=== PATIENT | female | born 1955 | race Caucasian/White ===

== ENCOUNTER 2018-12-21 13:55 | Emergency (ER) | payer OTHER ==
[2018-12-21 14:28] LABS: BASOPHILS % (AUTO) 0.6 % (0.0-5.0); EOSINOPHILS % (AUTO) 0.6 % (0.0-8.0); HEMATOCRIT 44.7 % (36-48); LYMPHOCYTES % (AUTO) 30.3 % (21.0-51.0); MEAN CORPUSCULAR HEMOGLOBIN 31.4 pg (27.0-33.0); MEAN CORPUSCULAR HGB CONC 34.2 g/dL (32.0-36.0); MONOCYTES % (AUTO) 8.2 % (3.0-13.0); NEUTROPHILS % (AUTO) 60.3 % (40.0-77.0); NUCLEATED RED BLOOD CELLS 0.1 % (0.0-0.19); PLATELET COUNT (AUTO) 181 K/uL (130-400); RED BLOOD CELL COUNT(AUTO) 4.86 MIL/uL (4.00-5.50); RED CELL DISTRIBUTION WIDTH 12.9 % (11.0-15.5); WHITE BLOOD COUNT (AUTO) 5.6 K/uL (4.8-10.8)
[2018-12-21 14:40] LABS: CREATININE 0.6 mg/dL (0.5-1.5); POTASSIUM 3.9 mmol/L (3.5-5.1)
[2018-12-21 14:42] LABS: INR 0.96 (0.85-1.15); PARTIAL THROMBOPLASTIN TIME 25.7 SEC (26.3-35.5); PROTHROMBIN TIME 10.1 SEC (9.6-11.6)
[2018-12-21 14:52] LABS: ALBUMIN 4.4 g/dL (3.5-5.0); BILIRUBIN,TOTAL 1.1 mg/dL (0.2-1.0); MAGNESIUM 1.8 mg/dL (1.80-2.40); THYROID STIMULATING HORMONE 1.18 uIU/mL (0.36-3.74); TOTAL PROTEIN, SERUM 8.2 g/dL (6.0-8.3)
[2018-12-21 14:59] LABS: B-TYPE NATRIURETIC PEPTIDE 44 pg/mL (0-100)
[2018-12-21 15:24] LABS: APPEARANCE,URINE Clear (CLEAR); BILIRUBIN,URINE Negative (NEGATIVE); COLOR,URINE Yellow (YELLOW); GLUCOSE, URINE (UA) Negative (NEGATIVE); KETONES,URINE Negative (NEGATIVE); LEUKOCYTE ESTERASE ,URINE Negative (NEGATIVE); NITRATE,URINE Negative (NEGATIVE); OCCULT BLOOD,URINE Negative (NEGATIVE); PH,URINE 6.5 (5.0-8.0); PROTEIN,URINE Negative (NEGATIVE); UROBILINOGEN,URINE 0.2 mg/dL (0.2-1.0)
[2018-12-21] MEDS ORDERED: MAGNESIUM OXIDE 400 MG TABLET PO ONE (15:56)
[2018-12-21] MEDS ORDERED: SODIUM CHLORIDE 0.9% 1000ML 1,000 ML IV ONE (15:56)
== END 2018-12-21 17:14 | disposition home or self-care (01) ==
LOC: EDH 13:55
DX: I49.9 Cardiac arrhythmia, unspecified (principal); E86.0 Dehydration; R19.7 Diarrhea, unspecified; E83.42 Hypomagnesemia; Z90.49 Acquired absence of other specified parts of digestive tract; Z98.890 Other specified postprocedural states; Z88.2 Allergy status to sulfonamides
CPT/HCPCS: 36415; 71045; 80053; 81003; 82550; 83735; 83880; 84443; 84484; 85025; 85610; 85730; 93005; 96360; 99285; J7030

== ENCOUNTER 2024-01-30 17:59 | Emergency (ER) | payer MEDICARE, OTHER ==
[~2024-01-30] VITALS: Ht 167.6 cm; Wt 75.7 kg
[2024-01-30 18:22] LABS: BASOPHILS # (AUTO) 0.04 K/uL (0.00-0.20); BASOPHILS % (AUTO) 0.6 % (0.0-5.0); EOSINOPHILS # (AUTO) 0.11 K/uL (0.00-0.70); EOSINOPHILS % (AUTO) 1.6 % (0.0-8.0); HEMATOCRIT 42.9 % (36-48); IMMATURE GRANULOCYTE ABSOLUTE 0.01 K/uL (0-1); LYMPHOCYTES # (AUTO) 2.5 K/uL (1.0-4.8); LYMPHOCYTES % (AUTO) 35.7 % (21.0-51.0); MEAN CORPUSCULAR HEMOGLOBIN 31.3 pg (27.0-33.0); MEAN CORPUSCULAR VOLUME 91.9 fL (79-99); MONOCYTES # (AUTO) 0.7 K/uL (0.1-1.0); MONOCYTES % (AUTO) 9.8 % (3.0-13.0); NEUTROPHILS # (AUTO) 3.6 K/uL (1.8-7.7); NEUTROPHILS % (AUTO) 52.2 % (40.0-77.0); PLATELET COUNT (AUTO) 182 K/uL (130-400); RED BLOOD CELL COUNT(AUTO) 4.67 MIL/uL (4.00-5.50); WHITE BLOOD COUNT (AUTO) 6.9 K/uL (4.8-10.8)
[2024-01-30 18:31] LABS: CREATININE 0.9 mg/dL (0.5-1.0)
[2024-01-30 18:36] LABS: ALBUMIN 3.9 g/dL (3.5-5.0); BILIRUBIN,TOTAL 1.1 mg/dL (0.2-1.0); TOTAL PROTEIN, SERUM 7.5 g/dL (6.0-8.3)
--- NOTE | 2024-01-30 18:38 | HMCIMG ---
CHEST 1VW REASON: ABD PAIN COMPARISON: 12/21/2018 FINDINGS: Single view of the chest was obtained. Lungs are clear. Heart size is normal. There is no pulmonary vascular congestion. Mediastinum and bony thorax appear unremarkable. IMPRESSION: 1. Normal single view chest x-ray.
--- NOTE | 2024-01-30 18:45 | ERN ---
ED Note History of Present Illness Stated Complaint: EPIGASTRIC PAIN, ABN EKG Chief Complaint: Abdominal Pain Time Seen by MD: 18:03 Time Seen by Midlevel: 18:03 Dictation: Patient is a 68-year-old female with history of glaucoma, cholecystectomy who p resents to the emergency department with complaints of epigastric pain onset 1530 after eating a burger. Patient reports also having an elevated blood pressure 195/90. Patient reports she went to go see her PCP and told her she had an abnormal EKGs and told her to come to ER to be evaluated. Patient denies any nausea, vomiting, fevers, anymore pain. Patient reports pain lasted about an hour and a half. Allergies: Coded Allergies: Sulfa (Sulfonamide Antibiotics) (Unverified Allergy, Unknown, 01/30/24) Past Medical History Past Medical History: High Cholesterol Additional Past Medical Hx: GLAUCOMA Surgical History: Tonsillectomy, Cholecystectomy History: Not Applicable RN Note Reviewed/Agreed w/PFSH: Yes Review of System Dictation Constitutional: Negative for fever,chills, and weight loss Eyes: Negative for injury, pain,redness, and discharge ENT: Negative for injury,pain or swelling Cardiovascular: Negative for chest pain, palpitations, and edema Respiratory: Negative for shortness of breath, cough, and wheezing, Abdomen/GI: Negative for nausea, vomiting, diarrhea, and constipation positive for abdominal pain Back: Negative for injury and pain : Negative for injury, bleeding and discharge MS/Extremity: Negative for injury and deformity Skin: Negative for rash, and discoloration Neuro: Negative for headache, weakness, numbness, tingling, and seizure Psych: Negative for suicide ideation, homicidal ideation, and hallucinations Initial Vital Sign VS Vital Signs Date Time Temp Pulse Resp B/P (MAP) Pulse Ox O2 Delivery O2 Flow Rate FiO2 01/30/24 18:00 98.6 106 16 155/81 96 Room Air 0 01/30/24 18:52 21 Physical Exam Dictation Vital Signs reviewed General Appearance: Alert, oriented x 3, no acute distress, well developed, nourished. Head and Face: non-traumatic. Eyes: PERRL, pink conjunctivas, eyelid no trauma, anterior chamber with arcus senilis. Ears: Pinnas intact and no signs of trauma or erythema ear canals clear and no discharge TM no erythema Nose: No discharge, no bleeding. Oropharynx: Mouth normal, tongue pink. pharynx clear,no erythema, tonsils no exudates, no abscesses noted, mucous membrane moist Neck: Supple, non-tender, no thyromegaly, no masses, no JVD, no bruits Breast:Deferred Chest:No tenderness, no crepitus, no paradoxical movement, no retractions Lungs:Clear, well-ventilated, symmetric, no rales, no wheezing, no rhonchi, no stridor, good breath sounds bilaterally Heart: Regular rate, regular rhythm, no murmur, no gallops Vascular: no peripheral edema, Abdomen: Soft, positive bowel sounds, nondistended, no guarding, nontender, no rebound, no masses no hepatomegaly, no splenomegaly, no Chamberlain's sign, no hernias. Rectal: Deferred Genital: Deferred Neurological: Normal speech, motor function intact, sensory function intact Musculoskeletal: Neck nontender, full range of motion, back nontender, full range of motion, Extremities: nontender, full range of motion Skin: Color pink, dry, no turgor, no rash, no lacerations, no abrasions, no contusions. Lymphatic: Deferred Results (Laboratory/Radiology) Laboratory/Radiology Laboratory Tests Test 01/30/24 18:12 01/30/24 19:09 01/30/24 19:32 White Blood Count 6.9 K/uL (4.8-10.8) Red Blood Count 4.67 MIL/uL (4.00-5.50) Hemoglobin 14.6 g/dL (12.0-16.0) Hematocrit 42.9 % (36-48) Mean Corpuscular Volume 91.9 fL (79-99) Mean Corpuscular Hemoglobin 31.3 pg (27.0-33.0) Mean Corpuscular Hemoglobin Concent 34.0 g/dL (32.0-36.0) Red Cell Distribution Width 12.0 % (11.0-15.5) Platelet Count 182 K/uL (130-400) Mean Platelet Volume 11.1 fL (7.5-10.5) H Immature Granulocyte % (Auto) 0.1 % (0-1) Neutrophils (%) (Auto) 52.2 % (40.0-77.0) Lymphocytes (%) (Auto) 35.7 % (21.0-51.0) Monocytes (%) (Auto) 9.8 % (3.0-13.0) Eosinophils (%) (Auto) 1.6 % (0.0-8.0) Basophils (%) (Auto) 0.6 % (0.0-5.0) Neutrophils # (Auto) 3.6 K/uL (1.8-7.7) Lymphocytes # (Auto) 2.5 K/uL (1.0-4.8) Monocytes # (Auto) 0.7 K/uL (0.1-1.0) Eosinophils # (Auto) 0.11 K/uL (0.00-0.70) Basophils # (Auto) 0.04 K/uL (0.00-0.20) Absolute Immature Granulocyte (auto 0.01 K/uL (0-1) Nucleated Red Blood Cells 0.0 % (0.0-0.19) Sodium Level 143 mmol/L (136-145) Potassium Level 4.0 mmol/L (3.5-5.1) Chloride Level 106 mmol/L (101-111) Carbon Dioxide Level 32 mmol/L (21-32) Blood Urea Nitrogen 21 mg/dL (7-18) H Creatinine 0.9 mg/dL (0.5-1.0) Glomerular Filtration Rate Calc 69 mL/min (>90) Random Glucose 141 mg/dL (70-105) H Total Calcium 9.6 mg/dL (8.5-10.1) Total Bilirubin 1.1 mg/dL (0.2-1.0) H Aspartate Amino Transf (AST/SGOT) 12 U/L (10-37) Alanine Aminotransferase (ALT/SGPT) 24 U/L (12-78) Alkaline Phosphatase 82 U/L (50-136) Troponin I High Sensitivity 14 ng/L (4-50) 22 ng/L (4-50) Total Protein 7.5 g/dL (6.0-8.3) Albumin 3.9 g/dL (3.5-5.0) Lipase 36 U/L (16-77) Urine Color LIGHT-YELLOW (YELLOW) Urine Appearance CLEAR (CLEAR) Urine pH 5.5 (5.0-8.0) Urine Specific [place] 1.013 (1.001-1.031) Urine Protein NEGATIVE mg/dL (NEGATIVE) Urine Glucose (UA) NEGATIVE mg/dL (NEGATIVE) Urine Ketones NEGATIVE mg/dL (NEGATIVE) Urine Occult Blood NEGATIVE (NEGATIVE) Urine Nitrate NEGATIVE (NEGATIVE) Urine Bilirubin NEGATIVE mg/dL (NEGATIVE) Urine Urobilinogen 0.2 mg/dL (0.2-1.0) Urine Leukocyte Esterase NEGATIVE Abdulkadir/uL Urine RBC 0-1 /HPF (0-1) Urine WBC 0-1 /HPF (0-1) Urine Bacteria None /HPF (None Seen) REASON: ABD PAIN ORDERING PHYSICIAN: EFFIE HATHAWAY MD PROCEDURE: CXR1VW - CHEST 1VW CHEST 1VW REASON: ABD PAIN COMPARISON: 12/21/2018 FINDINGS: Single view of the chest was obtained. Lungs are clear. Heart size is normal. There is no pulmonary vascular congestion. Mediastinum and bony thorax appear unremarkable. IMPRESSION: 1. Normal single view chest x-ray. Labs Reviewed?: Yes EKG: (+) rhythm (Sinus rhythm), (+) ND (148) EKG Comment: EKG 01/30/2024 1809 ventricular rate 100, sinus tachycardia, regular rate and rhythm, no STEMI. ED Course ED Course Orders Procedure Category Date Status Time Cbc With Differential LAB 01/30/24 Complete 18:04 Comprehensive LAB 01/30/24 Complete Metabolic Panel 18:04 Troponin I High LAB 01/30/24 Complete Sensitivity 18:04 Urinalysis Profile LAB 01/30/24 Complete 18:04 12 Lead Ekg Tracing- EKG 01/30/24 Logged Technical 18:04 Chest 1vw RAD 01/30/24 Resulted 18:04 Lipase LAB 01/30/24 Complete 18:04 0.9%Nacl 1000ml (Ns PHA 01/30/24 Complete 1000ml) 18:30 Pantoprazole 40mg Inj PHA 01/30/24 Complete (Protonix 40mg Inj 18:30 Aspirin 81mg Chew Tab PHA 01/30/24 Complete (Aspirin 81mg Chew 18:30 Troponin I High LAB 01/30/24 Complete Sensitivity 19:00 Current Medications Medications (Trade) Dose Ordered Sig/Lc Route PRN Reason Start Time Stop Time Status Last Admin Dose Admin Aspirin (Aspirin 81mg Chew Tab) 324 mg ONCE ONCE PO 01/30/24 18:30 01/30/24 18:31 DC 01/30/24 18:49 Pantoprazole Sodium (PROTonix 40MG INJ) 40 mg ONCE ONCE IVP 01/30/24 18:30 01/30/24 18:31 DC Sodium Chloride 1,000 ml @ 0 mls/hr ONCE ONCE IV 01/30/24 18:30 01/30/24 18:31 DC Vital Signs Date Time Temp Pulse Resp B/P (MAP) Pulse Ox O2 Delivery O2 Flow Rate FiO2 01/30/24 19:57 98.1 92 18 132/65 99 Room Air* 0 21 01/30/24 18:52 98.6 90 16 149/80 97 Room Air* 0 21 01/30/24 18:00 98.6 106 16 155/81 96 Room Air 0 HEART Score Response (Comments) Value History: Low suspicion (0) 0 EKG: Normal 0 Age: 45-65yrs (+1) 1 Risk Factors: No known risk factors (0) 0 Initial Troponin: Normal limit (0) 0 Total 1 Medical Decision Making MDM The Patient is a 68-year-old female with history of glaucoma, cholecystectomy who presents to the emergency department with complaints of epigastric pain onset 1530 after eating a burger. Patient reports also having an elevated blood pressure 195/90. Patient reports she went to go see her PCP and told her she had an abnormal EKGs and told her to come to ER to be evaluated. Patient denies any nausea, vomiting, fevers, anymore pain. Patient reports pain lasted about an hour and a half. CBC showed no leukocytosis, no anemia, chemistry showed normal lipase, GFR is 69 slight hyperglycemia, negative liver enzymes, troponin of 14, second troponin 22. Chest x-ray unremarkable. Patient continues with no more pain. tachycardia improved. patient in no acute distress. Discussed with the patient the possib ility of admission for observation. At this time patient refuses admission and reports she will follow up with her web editor. Patient instructed to follow up as soon as possible. In to return if anything worsens. Patient agrees with plan. Risks and benefits of being admitted to the hospital discussed with the patient who continues to refused admission. Differential diagnosis: ACS, gastritis, gastroenteritis, tachyarrhythmia, electrolyte imbalance, cholelithiasis Need for hospitalization: Patient does not meet criteria for hospitalization. There are no social concerns with this patient. DX & DISP Disposition: Discharge Departure Impression: Primary Impression: Gastritis Additional Impression: Epigastric pain Condition: Stable Scripts Pantoprazole Sodium (Protonix) 20 Mg Tablet. 1 TAB PO DAILY for 30 Days, #30 TAB 0 Refills Prov: RADHAMES DICKINSON 01/30/24 Additional Instructions: Please follow up with your web editor as soon as possible. Please return to ER if symptoms worsen. FOLLOW-UP WITH PRIMARY CARE PROVIDER IN 1 TO 2 DAYS. TAKE MEDICATIONS DIREC HITESH HERE IN THE EMERGENCY ROOM. OKAY TO CONTINUE HOME MEDICATIONS UNLESS OTHERWISE DISCUSSED DURING YOUR VISIT IN THE EMERGENCY ROOM TODAY. RETURN TO YOUR NEAREST EMERGENCY ROOM IF SYMPTOMS WORSEN OR IF THERE IS NO IMPROVEMENT. CALL 911 IF YOU NEED IMMEDIATE ASSISTANCE. TAKE TYLENOL OR MOTRIN [id number] NEEDED AND IF NO CONTRAINDICATIONS ARE PRESENT. INCREASE ORAL HYDRATION. A WOUND CULTURE OR URINE CULTURE WAS ORDERED HERE IN THE EMERGENCY ROOM DEPARTMENT PLEASE FOLLOW-UP WITH PRIMARY CARE PROVIDER AND ADVISE THEM TO GET REPEAT PORTS FROM OUR FACILITY. IF YOU HAD ANY WIN WRAP/SPLINTS THAT WERE APPLIED HERE, PLEASE DO NOT REMOVE THEM UNTIL YOU SEE YOUR PRIMARY CARE OR SPECIALTY. Referrals: DARRYL EMMANUEL (PCP) Time of Disposition: 20:36 I have reviewed the case, and I agree with, Diagnosis and Plan RADHAMES DICKINSON Jan 30, 2024 18:45
[2024-01-30] MEDS: 0.9%NACL 1000ML 1,000 ML IV ONE (18:49)
[2024-01-30] MEDS: PANTOPrazole 40 MG/VIAL IVP ONE (18:49)
[2024-01-30] MEDS: ASPIRIN 81MG CHEW TAB PO ONE (18:49)
--- NOTE | 2024-01-30 19:10 | NUR ---
PT REFUSED IV AND IV MEDICATIONS
--- NOTE | 2024-01-30 19:15 | NUR ---
REPORT GIVEN TO SHI CARR
[2024-01-30 19:24] LABS: APPEARANCE,URINE CLEAR (CLEAR); BILIRUBIN,URINE NEGATIVE (NEGATIVE); COLOR,URINE LIGHT-YELLOW (YELLOW); GLUCOSE, URINE (UA) NEGATIVE (NEGATIVE); KETONES,URINE NEGATIVE (NEGATIVE); LEUKOCYTE ESTERASE ,URINE NEGATIVE Leu/uL (NEGATIVE); NITRATE,URINE NEGATIVE (NEGATIVE); OCCULT BLOOD,URINE NEGATIVE (NEGATIVE); PH,URINE 5.5 (5.0-8.0); PROTEIN,URINE NEGATIVE (NEGATIVE); UROBILINOGEN,URINE 0.2 mg/dL (0.2-1.0)
[2024-01-30 20:01] LABS: ADD UA MICROSCOPIC YES
[2024-01-30 20:08] LABS: RBC,URINE 0-1 /HPF (0-1); WBC,URINE 0-1 /HPF (0-1)
[2024-01-30] MEDS ORDERED: PANT20TA PO (20:37)
[2024-01-30 20:56] VITALS: BP 125/75; PULSE 90; RESP 18; TEMP 98.2; O2SAT 96
--- NOTE | 2024-01-30 20:57 | NUR ---
PATIENT REFUSED TO TAKE HOME MEDS
--- NOTE | 2024-01-31 06:58 | EKG ---
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
== END 2024-01-30 20:57 | disposition home or self-care (01) ==
LOC: EDH 17:59
DX: K29.70 Gastritis, unspecified, without bleeding (principal); R10.13 Epigastric pain; E78.00 Pure hypercholesterolemia, unspecified; Z88.2 Allergy status to sulfonamides; Z90.49 Acquired absence of other specified parts of digestive tract; Z90.89 Acquired absence of other organs
CPT/HCPCS: 36415; 71045; 80053; 81001; 83690; 84484; 85025; 93005; 99284; 99285; J2470; J7030